=== PATIENT | female | born 1950 | race Asian ===

== ENCOUNTER 2016-10-16 06:41 | Day surgery (SDC) | payer MEDICARE, OTHER ==
[~2016-10-16] VITALS: Ht 149.9 cm; Wt 66.4 kg
[~2016-10-16 06:41] MED LIST: SIMV-260 PO
[2016-10-16] MEDS ORDERED: BOTULINUM TOXIN TYPE A 100 UNITS/VIAL ID ONE (06:45)
[2016-10-16] MEDS ORDERED: SODIUM CHLORIDE 0.9% 1,000 ML IV ONE ×2 (07:00)
== END 2016-10-16 09:35 | disposition home or self-care (01) ==
LOC: SURGERY 06:41
PROVIDERS: ATTEND Specialist
DX: K29.70 Gastritis, unspecified, without bleeding (principal); K21.9 Gastro-esophageal reflux disease without esophagitis; K22.4 Dyskinesia of esophagus; K63.5 Polyp of colon; E78.5 Hyperlipidemia, unspecified; K64.8 Other hemorrhoids; A04.8 Other specified bacterial intestinal infections; Z88.2 Allergy status to sulfonamides; Z88.8 Allergy status to other drugs, medicaments and biological substances
CPT/HCPCS: 43236; 43239; 88305; 88309; C1769; J0585; J7030

== ENCOUNTER → 2018-01-01 | Outpatient (CLI) | payer MEDICARE, OTHER ==
[~2018-01-01] VITALS: Ht 162.6 cm; Wt 69.5 kg
[~2018-01-01] MED LIST changes: +ALPR0.5T8 PO; +EZET10 PO; +GABA-531 PO
[2018-01-01 11:31] VITALS: BP 100/53
== END | disposition home or self-care (01) ==
LOC: SRCNTR 11:19
PROVIDERS: ATTEND Internal Medicine Cardiovascular Disease
DX: F41.9 Anxiety disorder, unspecified (principal); E78.5 Hyperlipidemia, unspecified
CPT/HCPCS: G0463

== ENCOUNTER → 2018-01-03 | Outpatient (CLI) | payer MEDICARE, OTHER ==
[2018-01-03 10:52] LABS: EOSINOPHILS % (AUTO) 6.5 % (1.0-6.0); HEMATOCRIT 43.1 % (36-46); HEMOGLOBIN 14.6 g/dL (12.0-16.0); LYMPHOCYTES # (AUTO) 2.3 K/uL (1.0-4.8); LYMPHOCYTES % (AUTO) 37.6 % (22.0-44.0); MEAN CORPUSCULAR VOLUME 88 fL (80-100); MONOCYTES # (AUTO) 0.5 K/uL (0.1-1.0); MONOCYTES % (AUTO) 8.5 % (2.0-9.0); NEUTROPHILS # (AUTO) 2.8 K/uL (1.8-7.7); NEUTROPHILS % (AUTO) 46.4 % (40.0-70.0); PLATELET COUNT (AUTO) 320 K/uL (150-450); RED BLOOD CELL COUNT(AUTO) 4.88 MIL/uL (4.00-5.20); RED CELL DISTRIBUTION WIDTH 13.8 % (11.5-14.5)
[2018-01-03 10:53] LABS: APPEARANCE,URINE CLEAR (CLEAR); BILIRUBIN,URINE NEGATIVE (NEGATIVE); GLUCOSE, URINE (UA) NEGATIVE (NEGATIVE); KETONES,URINE NEGATIVE (NEGATIVE); LEUKOCYTE ESTERASE ,URINE NEGATIVE (NEGATIVE); NITRATE,URINE NEGATIVE (NEGATIVE); OCCULT BLOOD,URINE NEGATIVE (NEGATIVE); PH,URINE 6.5 (5.0-8.0); PROTEIN,URINE NEGATIVE (NEGATIVE); UROBILINOGEN,URINE 0.2 mg/dL (<=1.0)
[2018-01-03 11:18] LABS: ALANINE AMINOTRANSFERASE 27 U/L (12-78); ALBUMIN 3.3 g/dL (3.4-5.0); ALKALINE PHOSPHATASE 56 U/L (46-116); ANION GAP 6 mmol/L (8-16); ASPARTATE AMINOTRANSFERASE 35 U/L (15-37); BILIRUBIN,TOTAL 0.4 mg/dL (0.1-1.0); CALCIUM, TOTAL 8.7 mg/dL (8.8-10.5); CARBON DIOXIDE 28 mmol/L (22-29); CHLORIDE 105 mmol/L (98-107); CHOL/HDL RATIO 3.8 (3.9-5.7); CHOLESTEROL 171 mg/dL (131-200); CREATININE 0.88 mg/dL (0.60-1.30); GLOMERULAR FILTR. RATE CALC > 60 mL/min (>60); GLUCOSE,RANDOM 104 mg/dL (70-110); HDL CHOLESTEROL 45 mg/dL (40-60); LDL CHOL (CALC.) 97 mg/dL (0-130); POTASSIUM 4.5 mmol/L (3.5-5.1); SODIUM SERUM 139 mmol/L (136-145); THYROID STIMULATING HORMONE 3.25 uIU/mL (0.36-3.74); TRIGLYCERIDES 146 mg/dL (15-150); UREA NITROGEN, BLOOD 14 mg/dL (7-18)
[2018-01-03 12:48] LABS: BACTERIA,URINE Rare /HPF (None Seen); RBC,URINE None Seen /HPF (0-2); SQUAMOUS EPITHELIAL CELL,UR Rare /LPF (None Seen); WBC,URINE 0-2 /HPF (0-5)
== END | disposition home or self-care (01) ==
LOC: LABPV 08:21
PROVIDERS: ATTEND Internal Medicine Cardiovascular Disease
DX: E78.5 Hyperlipidemia, unspecified (principal); Z79.899 Other long term (current) drug therapy; Z88.5 Allergy status to narcotic agent; Z88.2 Allergy status to sulfonamides
CPT/HCPCS: 82271; 83036; 84443

== ENCOUNTER → 2018-04-03 | Outpatient (CLI) | payer MEDICARE, OTHER ==
[~2018-04-03] VITALS: Ht 149.9 cm; Wt 71.0 kg
[~2018-04-03] MED LIST changes: +ALEN70TA10 PO
[2018-04-03 11:42] VITALS: BP 127/74
== END | disposition home or self-care (01) ==
LOC: SRCNTR 11:17
PROVIDERS: ATTEND Internal Medicine Cardiovascular Disease
DX: Z23 Encounter for immunization (principal); E78.5 Hyperlipidemia, unspecified; K21.9 Gastro-esophageal reflux disease without esophagitis; F41.9 Anxiety disorder, unspecified; F41.8 Other specified anxiety disorders; K44.9 Diaphragmatic hernia without obstruction or gangrene; G89.4 Chronic pain syndrome; Z79.899 Other long term (current) drug therapy; Z86.010 Personal history of colon polyps
CPT/HCPCS: 90471; 90686; G0463

== ENCOUNTER → 2018-07-10 | Outpatient (CLI) | payer MEDICARE, OTHER ==
[~2018-07-10] VITALS: Ht 157.5 cm; Wt 71.0 kg
[2018-07-10 14:28] VITALS: BP 107/59
== END | disposition home or self-care (01) ==
LOC: SRCNTR 14:04
PROVIDERS: ATTEND Internal Medicine Cardiovascular Disease
DX: R94.31 Abnormal electrocardiogram [ECG] [EKG] (principal); K20.9 Esophagitis, unspecified
CPT/HCPCS: 93005; G0463

== ENCOUNTER → 2018-07-21 | Outpatient (CLI) | payer MEDICARE, OTHER ==
[~2018-07-21] VITALS: Ht 160 cm; Wt 70.0 kg
[2018-07-21 11:45] VITALS: BP 105/42
== END | disposition home or self-care (01) ==
LOC: SRCNTR 09:35
PROVIDERS: ATTEND Hospitalist
DX: M25.562 Pain in left knee (principal); M25.561 Pain in right knee; M25.531 Pain in right wrist; E78.5 Hyperlipidemia, unspecified; K21.9 Gastro-esophageal reflux disease without esophagitis; F41.1 Generalized anxiety disorder; M81.0 Age-related osteoporosis without current pathological fracture; G62.9 Polyneuropathy, unspecified; H53.8 Other visual disturbances
CPT/HCPCS: G0463

== ENCOUNTER → 2018-09-16 | Outpatient (CLI) | payer MEDICARE, OTHER ==
[~2018-09-16] VITALS: Ht 160 cm; Wt 71.0 kg
[2018-09-16 14:34] VITALS: BP 97/58
== END | disposition home or self-care (01) ==
LOC: SRCNTR 14:32
PROVIDERS: ATTEND Internal Medicine Cardiovascular Disease
DX: M17.0 Bilateral primary osteoarthritis of knee (principal); K21.0 Gastro-esophageal reflux disease with esophagitis; E78.5 Hyperlipidemia, unspecified; R14.0 Abdominal distension (gaseous); Z68.27 Body mass index [BMI] 27.0-27.9, adult
CPT/HCPCS: G0463

== ENCOUNTER → 2018-12-24 | Outpatient (CLI) | payer MEDICARE, OTHER ==
[~2018-12-24] MED LIST changes: +IMIP25TA5 PO; +OMEP20 PO
== END | disposition home or self-care (01) ==
LOC: RADPV 13:28
PROVIDERS: ATTEND Internal Medicine Cardiovascular Disease
DX: M17.0 Bilateral primary osteoarthritis of knee (principal)

== ENCOUNTER → 2019-05-18 | Outpatient (CLI) | payer MEDICARE, OTHER ==
[~2019-05-18] VITALS: Ht 152.4 cm; Wt 73.0 kg
[~2019-05-18] MED LIST changes: -EZET10 PO; +EZET10TA13 PO; -IMIP25TA5 PO
[2019-05-18 11:00] VITALS: BP 123/70
== END | disposition home or self-care (01) ==
LOC: SRCNTR 10:57
PROVIDERS: ATTEND Internal Medicine Cardiovascular Disease
DX: I10 Essential (primary) hypertension (principal); E78.5 Hyperlipidemia, unspecified; K20.9 Esophagitis, unspecified
CPT/HCPCS: 93005; G0463; 93288

== ENCOUNTER → 2019-07-20 | Outpatient (CLI) | payer MEDICARE, OTHER ==
[~2019-07-20] VITALS: Ht 152.4 cm; Wt 73.0 kg
[2019-07-20 10:45] VITALS: BP 124/68
== END | disposition home or self-care (01) ==
LOC: SRCNTR 10:44
PROVIDERS: ATTEND Internal Medicine Cardiovascular Disease
DX: I10 Essential (primary) hypertension (principal); K21.0 Gastro-esophageal reflux disease with esophagitis; E78.5 Hyperlipidemia, unspecified; F41.9 Anxiety disorder, unspecified
CPT/HCPCS: G0463

== ENCOUNTER → 2019-07-24 | Outpatient (CLI) | payer MEDICARE, OTHER ==
[2019-07-24 12:39] LABS: BASOPHILS % (AUTO) 1.3 % (0.0-2.0); EOSINOPHILS % (AUTO) 5.5 % (1.0-6.0); HEMATOCRIT 44.6 % (36-46); HEMOGLOBIN 14.4 g/dL (12.0-16.0); LYMPHOCYTES # (AUTO) 1.5 K/uL (1.0-4.8); LYMPHOCYTES % (AUTO) 27.7 % (22.0-44.0); MEAN CORPUSCULAR HGB CONC 32.2 G/dL (31.0-37.0); MEAN CORPUSCULAR VOLUME 90 fL (80-100); MONOCYTES # (AUTO) 0.4 K/uL (0.1-1.0); MONOCYTES % (AUTO) 7.5 % (2.0-9.0); NEUTROPHILS # (AUTO) 3.1 K/uL (1.8-7.7); PLATELET COUNT (AUTO) 364 K/uL (150-450); RED BLOOD CELL COUNT(AUTO) 4.95 MIL/uL (4.00-5.20); RED CELL DISTRIBUTION WIDTH 14.5 % (11.5-14.5)
[2019-07-24 12:56] LABS: ALBUMIN 3.6 g/dL (3.4-5.0); BILIRUBIN,TOTAL 0.4 mg/dL (0.1-1.0); CHOL/HDL RATIO 4.5 (3.9-5.7); CREATININE 0.93 mg/dL (0.60-1.30); POTASSIUM 4.4 mmol/L (3.5-5.1); TOTAL PROTEIN, SERUM 7.4 g/dL (6.4-8.2)
[2019-07-24 13:59] LABS: HEMOGLOBIN A1C 6.4 % (3.8-5.6)
== END | disposition home or self-care (01) ==
LOC: LABPV 09:50
PROVIDERS: ATTEND Internal Medicine Cardiovascular Disease
DX: I10 Essential (primary) hypertension (principal); E78.5 Hyperlipidemia, unspecified; Z79.899 Other long term (current) drug therapy
CPT/HCPCS: 83036

== ENCOUNTER → 2019-07-30 | Outpatient (CLI) | payer MEDICARE, OTHER ==
[~2019-07-30] VITALS: Ht 153 cm; Wt 74.0 kg
[2019-07-30 12:00] VITALS: BP 121/68
== END | disposition home or self-care (01) ==
LOC: SRCNTR 11:56
PROVIDERS: ATTEND Hospitalist
DX: E78.5 Hyperlipidemia, unspecified (principal); E11.9 Type 2 diabetes mellitus without complications; F41.1 Generalized anxiety disorder; K21.9 Gastro-esophageal reflux disease without esophagitis; R14.2 Eructation; M25.562 Pain in left knee; M25.561 Pain in right knee; M81.0 Age-related osteoporosis without current pathological fracture; G62.9 Polyneuropathy, unspecified
CPT/HCPCS: G0463

== ENCOUNTER → 2019-12-09 | Outpatient (CLI) | payer MEDICARE, OTHER ==
[~2019-12-09] MED LIST changes: -ALEN70TA10 PO; +ALEN70TA65 PO; +GABA-1181 PO; -GABA-531 PO
== END | disposition home or self-care (01) ==
LOC: SRCNTR 10:54
PROVIDERS: ATTEND Internal Medicine Cardiovascular Disease
DX: I10 Essential (primary) hypertension (principal); K58.9 Irritable bowel syndrome, unspecified; E78.5 Hyperlipidemia, unspecified; K21.9 Gastro-esophageal reflux disease without esophagitis; F41.9 Anxiety disorder, unspecified
CPT/HCPCS: Q3014

== ENCOUNTER → 2019-12-31 | Outpatient (CLI) | payer MEDICARE, OTHER | END | disposition home or self-care (01) | LOC: SRCNTR 15:28 | PROVIDERS: ATTEND Hospitalist | DX: I10 Essential (primary) hypertension (principal); E11.9 Type 2 diabetes mellitus without complications; E78.5 Hyperlipidemia, unspecified; K21.9 Gastro-esophageal reflux disease without esophagitis; F41.9 Anxiety disorder, unspecified; Z79.899 Other long term (current) drug therapy; Z88.8 Allergy status to other drugs, medicaments and biological substances | CPT/HCPCS: Q3014 ==

== ENCOUNTER → 2020-02-08 | Outpatient (CLI) | payer MEDICARE, OTHER ==
[~2020-02-08] VITALS: Ht 152.4 cm; Wt 73.6 kg
[2020-02-08 10:46] VITALS: BP 121/65
== END | disposition home or self-care (01) ==
LOC: SRCNTR 10:32
PROVIDERS: ATTEND Internal Medicine Cardiovascular Disease
DX: I10 Essential (primary) hypertension (principal); E78.5 Hyperlipidemia, unspecified; K21.9 Gastro-esophageal reflux disease without esophagitis; K58.9 Irritable bowel syndrome, unspecified; F41.9 Anxiety disorder, unspecified; Z79.899 Other long term (current) drug therapy; Z88.8 Allergy status to other drugs, medicaments and biological substances
CPT/HCPCS: G0463; Z7500

== ENCOUNTER → 2020-03-04 | Outpatient (CLI) | payer MEDICARE, OTHER ==
[~2020-03-04] MED LIST changes: +INFLUENZA VIRUS VACCINE QVS 2020-21 (6MO+)/PF 60 MCG/0.5 ML SYRINGE IM ONE
[2020-03-04 15:48] VITALS: BP 110/60
== END | disposition home or self-care (01) ==
LOC: SRCNTR 14:28
PROVIDERS: ATTEND Internal Medicine Cardiovascular Disease
DX: Z23 Encounter for immunization (principal)
CPT/HCPCS: 90471; 90686; G0463

== ENCOUNTER → 2020-04-08 | Outpatient (CLI) | payer MEDICARE, OTHER ==
[~2020-04-08] VITALS: Ht 152.4 cm; Wt 73.5 kg
[~2020-04-08] MED LIST changes: -INFLUENZA VIRUS VACCINE QVS 2020-21 (6MO+)/PF 60 MCG/0.5 ML SYRINGE IM ONE
[2020-04-08 11:01] VITALS: BP 120/67
== END | disposition home or self-care (01) ==
LOC: SRCNTR 10:31
PROVIDERS: ATTEND Internal Medicine Cardiovascular Disease
DX: I10 Essential (primary) hypertension (principal); E78.5 Hyperlipidemia, unspecified; K21.9 Gastro-esophageal reflux disease without esophagitis; K58.9 Irritable bowel syndrome, unspecified; F41.9 Anxiety disorder, unspecified; Z88.8 Allergy status to other drugs, medicaments and biological substances; Z79.899 Other long term (current) drug therapy
CPT/HCPCS: G0463

== ENCOUNTER → 2020-04-14 | Outpatient (CLI) | payer MEDICARE, OTHER ==
[~2020-04-14] VITALS: Ht 152.4 cm; Wt 74.5 kg
[2020-04-14 11:01] VITALS: BP 135/69
== END | disposition home or self-care (01) ==
LOC: SRCNTR 10:21
PROVIDERS: ATTEND Hospitalist
DX: R14.2 Eructation (principal)
CPT/HCPCS: G0463

== ENCOUNTER → 2020-04-18 | Outpatient (CLI) | payer MEDICARE, OTHER ==
[2020-04-18 13:38] LABS: BASOPHILS % (AUTO) 1.1 % (0.0-2.0); EOSINOPHILS % (AUTO) 3.4 % (1.0-6.0); HEMATOCRIT 43.8 % (36-46); HEMOGLOBIN 14.5 g/dL (12.0-16.0); LYMPHOCYTES # (AUTO) 2.2 K/uL (1.0-4.8); LYMPHOCYTES % (AUTO) 34.6 % (22.0-44.0); MEAN CORPUSCULAR HEMOGLOBIN 29.8 pg (26.0-34.0); MEAN CORPUSCULAR HGB CONC 33.1 G/dL (31.0-37.0); MEAN CORPUSCULAR VOLUME 90 fL (80-100); MONOCYTES # (AUTO) 0.5 K/uL (0.1-1.0); MONOCYTES % (AUTO) 7.5 % (2.0-9.0); NEUTROPHILS # (AUTO) 3.5 K/uL (1.8-7.7); NEUTROPHILS % (AUTO) 53.4 % (40.0-70.0); PLATELET COUNT (AUTO) 343 K/uL (150-450); RED BLOOD CELL COUNT(AUTO) 4.87 MIL/uL (4.00-5.20); RED CELL DISTRIBUTION WIDTH 14.2 % (11.5-14.5)
[2020-04-18 13:56] LABS: HEMOGLOBIN A1C 6.5 % (3.8-5.6)
[2020-04-18 14:00] LABS: ALBUMIN 3.5 g/dL (3.4-5.0); BILIRUBIN,TOTAL 0.4 mg/dL (0.1-1.0); CALCIUM, TOTAL 9.5 mg/dL (8.8-10.5); CHOL/HDL RATIO 3.6 (3.9-5.7); CREATININE 1.01 mg/dL (0.60-1.30); POTASSIUM 4.9 mmol/L (3.5-5.1); THYROID STIMULATING HORMONE 2.2 uIU/mL (0.36-3.74); TOTAL PROTEIN, SERUM 7.8 g/dL (6.4-8.2)
== END | disposition home or self-care (01) ==
LOC: MSR 09:59
PROVIDERS: ATTEND Hospitalist
DX: M85.88 Other specified disorders of bone density and structure, other site (principal); E11.9 Type 2 diabetes mellitus without complications
CPT/HCPCS: 77080; 82271; 83036; 84443

== ENCOUNTER → 2020-06-10 | Outpatient (CLI) | payer MEDICARE, OTHER ==
[~2020-06-10] VITALS: Ht 152.4 cm; Wt 73.3 kg
[2020-06-10 11:21] VITALS: BP 108/66
== END | disposition home or self-care (01) ==
LOC: SRCNTR 10:53
PROVIDERS: ATTEND Internal Medicine Cardiovascular Disease
DX: I10 Essential (primary) hypertension (principal); K58.9 Irritable bowel syndrome, unspecified; E11.9 Type 2 diabetes mellitus without complications; E78.5 Hyperlipidemia, unspecified; K21.9 Gastro-esophageal reflux disease without esophagitis; Z88.5 Allergy status to narcotic agent; Z88.2 Allergy status to sulfonamides; Z79.899 Other long term (current) drug therapy
CPT/HCPCS: G0463; Z7500

== ENCOUNTER → 2020-06-23 | Outpatient (CLI) | payer MEDICARE, OTHER ==
[~2020-06-23] VITALS: Ht 154.9 cm; Wt 73.0 kg
[2020-06-23 15:49] VITALS: BP 121/65
== END | disposition home or self-care (01) ==
LOC: SRCNTR 10:21
PROVIDERS: ATTEND Hospitalist
DX: I10 Essential (primary) hypertension (principal); E78.5 Hyperlipidemia, unspecified; K21.9 Gastro-esophageal reflux disease without esophagitis; K58.9 Irritable bowel syndrome, unspecified; F41.9 Anxiety disorder, unspecified; E11.9 Type 2 diabetes mellitus without complications
CPT/HCPCS: G0463

== ENCOUNTER → 2020-08-12 | Outpatient (CLI) | payer MEDICARE, OTHER ==
[~2020-08-12] VITALS: Ht 154.9 cm; Wt 70.0 kg
[~2020-08-12] MED LIST changes: +METF-960 PO
[2020-08-12 11:13] VITALS: BP 120/66
== END | disposition home or self-care (01) ==
LOC: SRCNTR 10:35
PROVIDERS: ATTEND Internal Medicine Cardiovascular Disease
DX: E11.9 Type 2 diabetes mellitus without complications (principal); I10 Essential (primary) hypertension; E78.5 Hyperlipidemia, unspecified; K21.9 Gastro-esophageal reflux disease without esophagitis; R42 Dizziness and giddiness; K58.9 Irritable bowel syndrome, unspecified
CPT/HCPCS: G0463; Z7500

== ENCOUNTER → 2020-09-22 | Outpatient (CLI) | payer MEDICARE, OTHER ==
[~2020-09-22] VITALS: Ht 152.4 cm; Wt 69.8 kg
[~2020-09-22] MED LIST changes: -EZET10TA13 PO; +EZET10TA57 PO
[2020-09-22 10:48] VITALS: BP 128/70
== END | disposition home or self-care (01) ==
LOC: SRCNTR 10:23
PROVIDERS: ATTEND Hospitalist
DX: I10 Essential (primary) hypertension (principal); E78.5 Hyperlipidemia, unspecified; K21.9 Gastro-esophageal reflux disease without esophagitis; F41.9 Anxiety disorder, unspecified; E11.9 Type 2 diabetes mellitus without complications; M79.7 Fibromyalgia; Z79.899 Other long term (current) drug therapy; Z88.8 Allergy status to other drugs, medicaments and biological substances; Z79.84 Long term (current) use of oral hypoglycemic drugs
CPT/HCPCS: G0463; Z7500

== ENCOUNTER → 2020-09-30 | Outpatient (CLI) | payer MEDICARE, OTHER ==
[2020-09-30 10:11] LABS: BASOPHILS % (AUTO) 0.9 % (0.0-2.0); HEMATOCRIT 43.6 % (36-46); HEMOGLOBIN 14.3 g/dL (12.0-16.0); LYMPHOCYTES # (AUTO) 1.7 K/uL (1.0-4.8); LYMPHOCYTES % (AUTO) 27.6 % (22.0-44.0); MEAN CORPUSCULAR HEMOGLOBIN 29.4 pg (26.0-34.0); MEAN CORPUSCULAR HGB CONC 32.8 G/dL (31.0-37.0); MEAN CORPUSCULAR VOLUME 90 fL (80-100); MONOCYTES # (AUTO) 0.5 K/uL (0.1-1.0); MONOCYTES % (AUTO) 7.8 % (2.0-9.0); NEUTROPHILS # (AUTO) 3.6 K/uL (1.8-7.7); NEUTROPHILS % (AUTO) 59.7 % (40.0-70.0); PLATELET COUNT (AUTO) 310 K/uL (150-450); RED BLOOD CELL COUNT(AUTO) 4.86 MIL/uL (4.00-5.20); RED CELL DISTRIBUTION WIDTH 13.8 % (11.5-14.5)
[2020-09-30 10:42] LABS: HEMOGLOBIN A1C 6.1 % (3.8-5.6)
[2020-09-30 10:47] LABS: ALBUMIN 3.6 g/dL (3.4-5.0); BILIRUBIN,TOTAL 0.4 mg/dL (0.1-1.0); CALCIUM, TOTAL 8.6 mg/dL (8.8-10.5); CHOL/HDL RATIO 3.8 (3.9-5.7); CREATININE 0.97 mg/dL (0.60-1.30); PHOSPHORUS 2.7 mg/dL (2.5-4.9); POTASSIUM 4.7 mmol/L (3.5-5.1); THYROID STIMULATING HORMONE 2.6 uIU/mL (0.36-3.74); TOTAL PROTEIN, SERUM 7.2 g/dL (6.4-8.2)
[2020-09-30 11:26] LABS: ERYTHROCYTE SEDIMENTATION RATE 20 MM/HR (0-20)
== END | disposition home or self-care (01) ==
LOC: LABPV 08:00
PROVIDERS: ATTEND Hospitalist
DX: L29.9 Pruritus, unspecified (principal); L98.9 Disorder of the skin and subcutaneous tissue, unspecified; I10 Essential (primary) hypertension; E11.9 Type 2 diabetes mellitus without complications; Z79.899 Other long term (current) drug therapy
CPT/HCPCS: 80053; 80061; 80069; 82306; 82550; 83036; 84443; 85025; 85651; 86038

== ENCOUNTER → 2020-10-14 | Outpatient (CLI) | payer MEDICARE, OTHER ==
[~2020-10-14] VITALS: Ht 152.4 cm; Wt 69.5 kg
[2020-10-14 11:03] VITALS: BP 116/59
== END | disposition home or self-care (01) ==
LOC: SRCNTR 10:38
PROVIDERS: ATTEND Internal Medicine Cardiovascular Disease
DX: E11.9 Type 2 diabetes mellitus without complications (principal); I10 Essential (primary) hypertension; E78.5 Hyperlipidemia, unspecified; K21.9 Gastro-esophageal reflux disease without esophagitis; K58.9 Irritable bowel syndrome, unspecified; F41.8 Other specified anxiety disorders
CPT/HCPCS: G0463

== ENCOUNTER → 2020-12-16 | Outpatient (CLI) | payer MEDICARE, OTHER ==
[~2020-12-16] VITALS: Ht 154.9 cm; Wt 69.0 kg
[2020-12-16 10:43] VITALS: BP 113/58
== END | disposition home or self-care (01) ==
LOC: SRCNTR 10:17
PROVIDERS: ATTEND Internal Medicine Cardiovascular Disease
DX: E11.9 Type 2 diabetes mellitus without complications (principal); E78.5 Hyperlipidemia, unspecified; K21.9 Gastro-esophageal reflux disease without esophagitis; K58.9 Irritable bowel syndrome, unspecified; F41.8 Other specified anxiety disorders
CPT/HCPCS: G0463

== ENCOUNTER → 2020-12-29 | Outpatient (CLI) | payer MEDICARE, OTHER ==
[~2020-12-29] VITALS: Ht 152.4 cm; Wt 69.4 kg
[2020-12-29 12:57] VITALS: BP 115/65
== END | disposition home or self-care (01) ==
LOC: SRCNTR 11:36
PROVIDERS: ATTEND Hospitalist
DX: I10 Essential (primary) hypertension (principal); E78.5 Hyperlipidemia, unspecified; K21.9 Gastro-esophageal reflux disease without esophagitis; E11.9 Type 2 diabetes mellitus without complications; K58.9 Irritable bowel syndrome, unspecified; F41.9 Anxiety disorder, unspecified
CPT/HCPCS: G0463; Z7500

== ENCOUNTER 2021-01-25 09:03 | Inpatient (IN) | payer MEDICARE, OTHER ==
[~2021-01-25] VITALS: Ht 152.4 cm; Wt 69.5 kg
[2021-01-25] MEDS ORDERED: IOHEXOL 350 MG/ML 75 ML VIAL ONE (09:22)
[2021-01-25] MEDS ORDERED: SODIUM CHLORIDE 0.9% 100 ML ONE (09:22)
[2021-01-25 09:47] LABS: BASOPHILS % (AUTO) 0.8 % (0.0-2.0); EOSINOPHILS % (AUTO) 1.1 % (1.0-6.0); HEMATOCRIT 47.8 % (36-46); HEMOGLOBIN 15.8 g/dL (12.0-16.0); LYMPHOCYTES # (AUTO) 1.2 K/uL (1.0-4.8); LYMPHOCYTES % (AUTO) 15.7 % (22.0-44.0); MEAN CORPUSCULAR HEMOGLOBIN 29.5 pg (26.0-34.0); MEAN CORPUSCULAR HGB CONC 33.2 G/dL (31.0-37.0); MEAN CORPUSCULAR VOLUME 89 fL (80-100); MONOCYTES # (AUTO) 0.8 K/uL (0.1-1.0); MONOCYTES % (AUTO) 9.8 % (2.0-9.0); NEUTROPHILS # (AUTO) 5.6 K/uL (1.8-7.7); NEUTROPHILS % (AUTO) 72.6 % (40.0-70.0); PLATELET COUNT (AUTO) 312 K/uL (150-450); RED BLOOD CELL COUNT(AUTO) 5.37 MIL/uL (4.00-5.20); RED CELL DISTRIBUTION WIDTH 14.6 % (11.5-14.5)
[2021-01-25 10:00] LABS: PROTHROMBIN TIME 10.3 SEC (9.4-11.6)
[2021-01-25 10:29] LABS: ANION GAP 10 mmol/L (8-16); CARBON DIOXIDE 25 mmol/L (22-29); CHLORIDE 100 mmol/L (98-107); CREATININE 0.91 mg/dL (0.60-1.30); GLOMERULAR FILTR. RATE CALC > 60 mL/min (>60); GLUCOSE,RANDOM 109 mg/dL (70-110); POTASSIUM 4.2 mmol/L (3.5-5.1); SODIUM SERUM 135 mmol/L (136-145); UREA NITROGEN, BLOOD 12 mg/dL (7-18)
[2021-01-25 10:30] LABS: CALCIUM, TOTAL 8.7 mg/dL (8.8-10.5)
[2021-01-25] MEDS ORDERED: MINERAL OIL/PETROLATUM,WHITE PF 3.5 GM OPHTHALMIC OINTMENT OS ONE (10:30)
[2021-01-25] MEDS ORDERED: ACYCLOVIR 200 MG CAPSULE PO ONE (10:30)
[2021-01-25] MEDS ORDERED: PredniSONE 20 MG TABLET PO ONE (10:30)
[2021-01-25] MEDS ORDERED: ASPIRIN 325 MG DR TABLET PO ONE (10:30)
[2021-01-25 10:38] LABS: ALANINE AMINOTRANSFERASE 31 U/L (12-78); ALKALINE PHOSPHATASE 70 U/L (46-116); ASPARTATE AMINOTRANSFERASE 35 U/L (15-37); BILIRUBIN,TOTAL 0.5 mg/dL (0.1-1.0); TOTAL PROTEIN, SERUM 8.1 g/dL (6.4-8.2)
[2021-01-25 10:39] LABS: ALBUMIN 3.5 g/dL (3.4-5.0)
[2021-01-25 12:56] LABS: APPEARANCE,URINE CLEAR (CLEAR); BILIRUBIN,URINE NEGATIVE (NEGATIVE); GLUCOSE, URINE (UA) NEGATIVE (NEGATIVE); KETONES,URINE NEGATIVE (NEGATIVE); LEUKOCYTE ESTERASE ,URINE NEGATIVE (NEGATIVE); NITRATE,URINE NEGATIVE (NEGATIVE); OCCULT BLOOD,URINE NEGATIVE (NEGATIVE); PROTEIN,URINE NEGATIVE (NEGATIVE); UROBILINOGEN,URINE 0.2 mg/dL (<=1.0)
[2021-01-25 13:01] LABS: AMPHET/METH SCREEN,URINE NEGATIVE (NEGATIVE); BARBITURATE SCREEN, URINE NEGATIVE (NEGATIVE); BENZODIAZEPINES SCREEN,URINE POSITIVE (NEGATIVE); CANNABINOID SCREEN,URINE NEGATIVE (NEGATIVE); COCAINE SCREEN,URINE NEGATIVE (NEGATIVE); METHADONE SCREEN, URINE NEGATIVE (NEGATIVE); OPIATE SCREEN,URINE NEGATIVE (NEGATIVE); PHENCYCLIDINE SCREEN,URINE NEGATIVE (NEGATIVE)
[2021-01-25 13:32] LABS: BACTERIA,URINE None Seen /HPF (None Seen); RBC,URINE None Seen /HPF (0-2); WBC,URINE None Seen /HPF (0-5)
[2021-01-25] MEDS ORDERED: HYDROCODONE/ACETAMINOPHEN 5-325 MG TABLET PO PRN (15:15)
[2021-01-25] MEDS ORDERED: ZOLPIDEM TARTRATE 5 MG TABLET PO PRN (15:15)
[2021-01-25] MEDS ORDERED: ONDANSETRON HCL 4 MG/2 ML VIAL IVP PRN (15:15)
[2021-01-25] MEDS ORDERED: MAGNESIUM HYDROXIDE SUSPENSION 30 ML UDCUP PO PRN (15:15)
[2021-01-25] MEDS ORDERED: BISACODYL 10 MG RECTAL RECTAL SUPPOSITORY PR PRN (15:15)
[2021-01-25] MEDS: HEPARIN SODIUM,PORCINE 5,000 UNITS/ML VIAL SQ SCH ×2 (15:23→23:40)
[2021-01-25 17:06] VITALS: BP 137/67
[2021-01-25] MEDS: MetFORMIN HCL 500 MG TABLET PO SCH (17:41)
[2021-01-25] MEDS: ACETAMINOPHEN 325 MG TABLET PO PRN ×2 (17:41→23:40)
[2021-01-25 19:50] VITALS: BP 139/72
[2021-01-25] MEDS: DOCUSATE SODIUM 100 MG CAPSULE PO SCH (20:16)
[2021-01-25] MEDS ORDERED: MELATONIN 3 MG TABLET PO PRN (22:30)
[2021-01-25 23:31] VITALS: BP 131/71
[2021-01-26 04:14] VITALS: BP 118/70
[2021-01-26 07:24] VITALS: BP 140/82
[2021-01-26] MEDS: DOCUSATE SODIUM 100 MG CAPSULE PO SCH ×2 (09:01→20:09)
[2021-01-26] MEDS: HEPARIN SODIUM,PORCINE 5,000 UNITS/ML VIAL SQ SCH ×2 (09:01→16:31)
[2021-01-26] MEDS: MetFORMIN HCL 500 MG TABLET PO SCH (09:01)
[2021-01-26] MEDS: PANTOPRAZOLE SODIUM 40 MG DR TABLET PO SCH (09:01)
[2021-01-26] MEDS: EZETIMIBE 10 MG TABLET PO SCH (09:01)
[2021-01-26] MEDS: SIMVASTATIN 20 MG TABLET PO SCH (09:01)
[2021-01-26 10:58] VITALS: BP 129/58
[2021-01-26 11:37] LABS: BASOPHILS % (AUTO) 0.7 % (0.0-2.0); EOSINOPHILS % (AUTO) 0 % (1.0-6.0); HEMATOCRIT 48.6 % (36-46); HEMOGLOBIN 15.8 g/dL (12.0-16.0); LYMPHOCYTES # (AUTO) 0.9 K/uL (1.0-4.8); LYMPHOCYTES % (AUTO) 12.6 % (22.0-44.0); MEAN CORPUSCULAR HEMOGLOBIN 29.2 pg (26.0-34.0); MEAN CORPUSCULAR HGB CONC 32.4 G/dL (31.0-37.0); MEAN CORPUSCULAR VOLUME 90 fL (80-100); MONOCYTES # (AUTO) 0.7 K/uL (0.1-1.0); MONOCYTES % (AUTO) 9.1 % (2.0-9.0); NEUTROPHILS # (AUTO) 5.8 K/uL (1.8-7.7); NEUTROPHILS % (AUTO) 77.6 % (40.0-70.0); PLATELET COUNT (AUTO) 306 K/uL (150-450); RED CELL DISTRIBUTION WIDTH 14.3 % (11.5-14.5)
[2021-01-26] MEDS ORDERED: DEXTROSE 50%-WATER 25 GM/50 ML SYRINGE IVP PRN (11:45)
[2021-01-26 11:50] LABS: CREATININE 1.01 mg/dL (0.60-1.30); POTASSIUM 4.7 mmol/L (3.5-5.1)
[2021-01-26 11:55] LABS: ALBUMIN 3.4 g/dL (3.4-5.0); BILIRUBIN,TOTAL 0.3 mg/dL (0.1-1.0); TOTAL PROTEIN, SERUM 7.8 g/dL (6.4-8.2)
[2021-01-26] MEDS: MethylPREDNISolone SOD SUCC 125 MG/2 ML VIAL IVP ONE ×2 (15:15→16:31)
[2021-01-26 15:26] VITALS: BP 132/78
[2021-01-26] MEDS: ValACYclovir HCL 500 MG TABLET PO SCH ×2 (16:31→20:09)
[2021-01-26] MEDS ORDERED: PredniSONE 20 MG TABLET PO ONE (18:15)
[2021-01-26 19:36] VITALS: BP 125/61
[2021-01-26] MEDS ORDERED: ALPRAZolam 0.5 MG TABLET PO PRN (21:30)
[2021-01-26 22:28] LABS: GLUCOMETER DEV NAME(LOC) 5S.2B; GLUCOSE,POINT OF CARE 108 MG/DL (70-110)
[2021-01-26 23:33] VITALS: BP 123/66
[2021-01-27] MEDS: HEPARIN SODIUM,PORCINE 5,000 UNITS/ML VIAL SQ SCH ×2 (00:21→08:25)
[2021-01-27 04:30] VITALS: BP 119/61
[2021-01-27] MEDS: INSULIN LISPRO 100 UNITS/ML SQ PRN ×2 (05:59→11:44)
[2021-01-27 06:45] LABS: GLUCOMETER DEV NAME(LOC) 5S.1; GLUCOSE,POINT OF CARE 118 MG/DL (70-110)
[2021-01-27 06:45] LABS: GLUCOMETER DEV NAME(LOC) 5S.1; GLUCOSE,POINT OF CARE 160 MG/DL (70-110)
[2021-01-27 06:45] LABS: GLUCOMETER DEV NAME(LOC) 5S.1; GLUCOSE,POINT OF CARE 110 MG/DL (70-110)
[2021-01-27 07:21] VITALS: BP 124/66
[2021-01-27] MEDS: DOCUSATE SODIUM 100 MG CAPSULE PO SCH (08:26)
[2021-01-27] MEDS: SIMVASTATIN 20 MG TABLET PO SCH (08:26)
[2021-01-27] MEDS: PANTOPRAZOLE SODIUM 40 MG DR TABLET PO SCH (08:26)
[2021-01-27] MEDS: EZETIMIBE 10 MG TABLET PO SCH (08:27)
[2021-01-27] MEDS: ValACYclovir HCL 500 MG TABLET PO SCH (08:27)
[2021-01-27] MEDS: ACETAMINOPHEN 325 MG TABLET PO PRN (08:39)
[2021-01-27] MEDS ORDERED: ValACYclovir HCL 500 MG TABLET PO SCH (09:00)
[2021-01-27] MEDS ORDERED: PredniSONE 20 MG TABLET PO SCH (09:00)
[2021-01-27 11:08] VITALS: BP 122/62
[2021-01-27] MEDS ORDERED: VALA500T34 PO (13:59)
[2021-01-27] MEDS ORDERED: METH4TAB3 PO (13:59)
[2021-01-27 15:17] VITALS: BP 147/65
[2021-01-27 19:28] LABS: GLUCOMETER DEV NAME(LOC) 5S.1; GLUCOSE,POINT OF CARE 153 MG/DL (70-110)
== END 2021-01-27 16:10 | disposition home or self-care (01) | DRG 74 ==
LOC: EMS 09:09 → 5S 15:53
PROVIDERS: ADMIT Internal Medicine; ATTEND Internal Medicine
DX: G51.0 Bell's palsy (principal); E87.1 Hypo-osmolality and hyponatremia; E11.9 Type 2 diabetes mellitus without complications; E66.3 Overweight; E78.5 Hyperlipidemia, unspecified; K21.9 Gastro-esophageal reflux disease without esophagitis; M81.0 Age-related osteoporosis without current pathological fracture; Z79.83 Long term (current) use of bisphosphonates; Z79.84 Long term (current) use of oral hypoglycemic drugs; Z79.899 Other long term (current) drug therapy; Z68.29 Body mass index [BMI] 29.0-29.9, adult; Z88.5 Allergy status to narcotic agent; Z88.2 Allergy status to sulfonamides
CPT/HCPCS: 70496; 70551; 71045; 80053; 81001; 82947; 82962; 84484; 85025; 85610; 85730; 86850; 86900; 86901; 92507; 92610; 93005; 99291; J1644; J2930; J7050; Q9967; 36415-L1; 36415-TC; 70450; 70450-TC

== ENCOUNTER → 2021-02-01 | Outpatient (CLI) | payer MEDICARE, OTHER ==
[~2021-02-01] MED LIST changes: +GLIP5 PO; +METH4TAB3 PO; +TRAM50TA4 PO; +VALA500T34 PO
[2021-02-01 11:18] VITALS: BP 119/60
== END | disposition home or self-care (01) ==
LOC: SRCNTR 10:34
PROVIDERS: ATTEND Hospitalist
DX: I10 Essential (primary) hypertension (principal); E78.5 Hyperlipidemia, unspecified; K21.9 Gastro-esophageal reflux disease without esophagitis; E11.9 Type 2 diabetes mellitus without complications; K58.9 Irritable bowel syndrome, unspecified; F41.9 Anxiety disorder, unspecified; G51.0 Bell's palsy
CPT/HCPCS: G0463

== ENCOUNTER → 2021-02-09 | Outpatient (CLI) | payer MEDICARE, OTHER ==
[~2021-02-09] MED LIST changes: -METH4TAB3 PO; -VALA500T34 PO
[2021-02-09 15:05] VITALS: BP 106/49
== END | disposition home or self-care (01) ==
LOC: SRCNTR 11:55
PROVIDERS: ATTEND Hospitalist
DX: I10 Essential (primary) hypertension (principal); E78.5 Hyperlipidemia, unspecified; K21.9 Gastro-esophageal reflux disease without esophagitis; E11.9 Type 2 diabetes mellitus without complications; K58.8 Other irritable bowel syndrome; F41.9 Anxiety disorder, unspecified; G51.0 Bell's palsy
CPT/HCPCS: G0463

== ENCOUNTER → 2021-02-17 | Outpatient (CLI) | payer MEDICARE, OTHER ==
[~2021-02-17] VITALS: Ht 152.4 cm; Wt 63.9 kg
[2021-02-17 10:54] VITALS: BP 110/73
== END | disposition home or self-care (01) ==
LOC: SRCNTR 10:30
PROVIDERS: ATTEND Internal Medicine Cardiovascular Disease
DX: E11.9 Type 2 diabetes mellitus without complications (principal); E78.5 Hyperlipidemia, unspecified; K21.9 Gastro-esophageal reflux disease without esophagitis; K58.8 Other irritable bowel syndrome; F41.9 Anxiety disorder, unspecified; G51.0 Bell's palsy
CPT/HCPCS: G0463; Z7500

== ENCOUNTER → 2021-02-23 | Outpatient (CLI) | payer MEDICARE, OTHER ==
[~2021-02-23] VITALS: Ht 152.4 cm; Wt 64.5 kg
[~2021-02-23] MED LIST changes: -ALEN70TA65 PO; -GABA-1181 PO; +INFLUENZA VIRUS VACCINE QVS 2021-22 (6MO+)/PF 60 MCG/0.5 ML SYRINGE IM. ONE; -METF-960 PO; -OMEP20 PO
[2021-02-23 14:22] VITALS: BP 99/60
== END | disposition home or self-care (01) ==
LOC: SRCNTR 11:05
PROVIDERS: ATTEND Hospitalist
DX: Z23 Encounter for immunization (principal); F41.9 Anxiety disorder, unspecified; K21.9 Gastro-esophageal reflux disease without esophagitis; I10 Essential (primary) hypertension; E78.5 Hyperlipidemia, unspecified; E11.9 Type 2 diabetes mellitus without complications; M81.0 Age-related osteoporosis without current pathological fracture; K58.9 Irritable bowel syndrome, unspecified; G51.0 Bell's palsy; Z79.899 Other long term (current) drug therapy; Z79.84 Long term (current) use of oral hypoglycemic drugs
CPT/HCPCS: 90471; 90686; G0463

== ENCOUNTER → 2021-04-06 | Outpatient (CLI) | payer MEDICARE, OTHER ==
[~2021-04-06] VITALS: Ht 152.4 cm; Wt 65.6 kg
[~2021-04-06] MED LIST changes: +ALEN70TA65 PO; -INFLUENZA VIRUS VACCINE QVS 2021-22 (6MO+)/PF 60 MCG/0.5 ML SYRINGE IM. ONE; +OMEP20 PO
[2021-04-06 12:55] VITALS: BP 111/67
== END | disposition home or self-care (01) ==
LOC: SRCNTR 12:30
PROVIDERS: ATTEND Hospitalist
DX: I10 Essential (primary) hypertension (principal); E78.5 Hyperlipidemia, unspecified; K21.9 Gastro-esophageal reflux disease without esophagitis; E11.9 Type 2 diabetes mellitus without complications; F41.9 Anxiety disorder, unspecified; K58.9 Irritable bowel syndrome, unspecified; G51.0 Bell's palsy
CPT/HCPCS: G0463

== ENCOUNTER → 2021-04-17 | Outpatient (CLI) | payer MEDICARE, OTHER ==
[~2021-04-17] VITALS: Ht 152.4 cm; Wt 65.6 kg
[~2021-04-17] MED LIST changes: -OMEP20 PO
[2021-04-17 11:32] VITALS: BP 95/63
== END | disposition home or self-care (01) ==
LOC: SRCNTR 10:52
PROVIDERS: ATTEND Internal Medicine Cardiovascular Disease
DX: E11.9 Type 2 diabetes mellitus without complications (principal); E78.5 Hyperlipidemia, unspecified; K21.9 Gastro-esophageal reflux disease without esophagitis; K58.8 Other irritable bowel syndrome; G51.0 Bell's palsy; F41.9 Anxiety disorder, unspecified
CPT/HCPCS: G0463

== ENCOUNTER → 2021-06-19 | Outpatient (CLI) | payer MEDICARE, OTHER ==
[~2021-06-19] VITALS: Ht 152.4 cm; Wt 66.0 kg
[~2021-06-19] MED LIST changes: +OMEP20 PO; -TRAM50TA4 PO
[2021-06-19 11:06] VITALS: BP 112/66
== END | disposition home or self-care (01) ==
LOC: SRCNTR 10:31
PROVIDERS: ATTEND Internal Medicine Cardiovascular Disease
DX: E11.9 Type 2 diabetes mellitus without complications (principal); E78.5 Hyperlipidemia, unspecified; K21.9 Gastro-esophageal reflux disease without esophagitis; K58.9 Irritable bowel syndrome, unspecified; F41.9 Anxiety disorder, unspecified
CPT/HCPCS: G0463

== ENCOUNTER → 2021-06-21 | Outpatient (CLI) | payer MEDICARE, OTHER ==
[~2021-06-21] VITALS: Ht 152.4 cm; Wt 66.0 kg
[2021-06-21 10:54] VITALS: BP 115/70
== END | disposition home or self-care (01) ==
LOC: SRCNTR 10:09
PROVIDERS: ATTEND Hospitalist
DX: I10 Essential (primary) hypertension (principal); E78.5 Hyperlipidemia, unspecified; K21.9 Gastro-esophageal reflux disease without esophagitis; E11.9 Type 2 diabetes mellitus without complications; F41.9 Anxiety disorder, unspecified; G51.0 Bell's palsy; K58.9 Irritable bowel syndrome, unspecified
CPT/HCPCS: G0463

== ENCOUNTER → 2021-06-23 | Outpatient (CLI) | payer MEDICARE, OTHER ==
[2021-06-23 10:59] LABS: BASOPHILS % (AUTO) 0.8 % (0.0-2.0); EOSINOPHILS % (AUTO) 2.8 % (1.0-6.0); HEMATOCRIT 43.9 % (36-46); HEMOGLOBIN 14.4 g/dL (12.0-16.0); LYMPHOCYTES # (AUTO) 1.7 K/uL (1.0-4.8); LYMPHOCYTES % (AUTO) 32.5 % (22.0-44.0); MEAN CORPUSCULAR HEMOGLOBIN 29.1 pg (26.0-34.0); MEAN CORPUSCULAR HGB CONC 32.7 G/dL (31.0-37.0); MEAN CORPUSCULAR VOLUME 89 fL (80-100); MONOCYTES # (AUTO) 0.4 K/uL (0.1-1.0); MONOCYTES % (AUTO) 6.7 % (2.0-9.0); NEUTROPHILS # (AUTO) 3.1 K/uL (1.8-7.7); NEUTROPHILS % (AUTO) 57.2 % (40.0-70.0); PLATELET COUNT (AUTO) 319 K/uL (150-450); RED BLOOD CELL COUNT(AUTO) 4.93 MIL/uL (4.00-5.20); RED CELL DISTRIBUTION WIDTH 13.4 % (11.5-14.5)
[2021-06-23 11:11] LABS: HEMOGLOBIN A1C 5.7 % (3.8-5.6)
[2021-06-23 11:28] LABS: ALANINE AMINOTRANSFERASE 18 U/L (12-78); ALBUMIN 3.5 g/dL (3.4-5.0); ALKALINE PHOSPHATASE 57 U/L (46-116); ANION GAP 10 mmol/L (8-16); ASPARTATE AMINOTRANSFERASE 15 U/L (15-37); BILIRUBIN,TOTAL 0.4 mg/dL (0.1-1.0); CALCIUM, TOTAL 8.7 mg/dL (8.8-10.5); CARBON DIOXIDE 30 mmol/L (22-29); CHLORIDE 108 mmol/L (98-107); CHOL/HDL RATIO 3.7 (3.9-5.7); CHOLESTEROL 164 mg/dL (131-200); CREATININE 0.91 mg/dL (0.60-1.30); GLUCOSE,RANDOM 107 mg/dL (70-110); HDL CHOLESTEROL 44 mg/dL (40-60); LDL CHOL (CALC.) 97 mg/dL (0-130); POTASSIUM 4.1 mmol/L (3.5-5.1); SODIUM SERUM 148 mmol/L (136-145); THYROID STIMULATING HORMONE 2.54 uIU/mL (0.36-3.74); TOTAL PROTEIN, SERUM 7.3 g/dL (6.4-8.2); TRIGLYCERIDES 114 mg/dL (15-150); UREA NITROGEN, BLOOD 13 mg/dL (7-18)
[2021-06-23 11:29] LABS: GLOMERULAR FILTR. RATE CALC > 60 mL/min (>60)
[2021-06-23 11:30] LABS: APPEARANCE,URINE CLEAR (CLEAR); BILIRUBIN,URINE NEGATIVE (NEGATIVE); GLUCOSE, URINE (UA) NEGATIVE (NEGATIVE); KETONES,URINE NEGATIVE (NEGATIVE); LEUKOCYTE ESTERASE ,URINE TRACE (NEGATIVE); NITRATE,URINE NEGATIVE (NEGATIVE); OCCULT BLOOD,URINE NEGATIVE (NEGATIVE); PROTEIN,URINE NEGATIVE (NEGATIVE); UROBILINOGEN,URINE 0.2 mg/dL (<=1.0)
[2021-06-23 11:45] LABS: BACTERIA,URINE None Seen /HPF (None Seen); RBC,URINE None Seen /HPF (0-2); SQUAMOUS EPITHELIAL CELL,UR None Seen /LPF (None Seen); WBC,URINE None Seen /HPF (0-5)
[2021-06-23 12:03] LABS: FOLATE SERUM 5.7 ng/mL (5.4-)
[2021-06-23 12:13] LABS: ERYTHROCYTE SEDIMENTATION RATE 21 MM/HR (0-20)
== END | disposition home or self-care (01) ==
LOC: LABPV 08:10
PROVIDERS: ATTEND Hospitalist
DX: Z13.228 Encounter for screening for other metabolic disorders (principal); R82.90 Unspecified abnormal findings in urine; E55.9 Vitamin D deficiency, unspecified; R79.9 Abnormal finding of blood chemistry, unspecified; R70.0 Elevated erythrocyte sedimentation rate; R73.09 Other abnormal glucose; R94.6 Abnormal results of thyroid function studies
CPT/HCPCS: 80053; 80061; 81001; 82306; 82607; 82746; 83036; 84443; 85025; 85651

== ENCOUNTER → 2021-06-24 | Outpatient (CLI) | payer MEDICARE, OTHER ==
[2021-06-24 11:36] LABS: FOLATE SERUM 14.9 ng/mL (5.4-)
[2021-06-24 11:42] LABS: VITAMIN B12 LEVEL > 2000 pg/mL (211-911)
== END | disposition home or self-care (01) ==
LOC: LABMN 10:22
PROVIDERS: ATTEND Physician Assistant
DX: A69.20 Lyme disease, unspecified (principal); D51.8 Other vitamin B12 deficiency anemias; R94.6 Abnormal results of thyroid function studies
CPT/HCPCS: 82607; 82746; 86618

== ENCOUNTER → 2021-08-14 | Outpatient (CLI) | payer MEDICARE, OTHER ==
[~2021-08-14] VITALS: Ht 152.4 cm; Wt 67.0 kg
[~2021-08-14] MED LIST changes: +GABA-1181 PO
[2021-08-14 11:10] VITALS: BP 105/56
== END | disposition home or self-care (01) ==
LOC: SRCNTR 10:22
PROVIDERS: ATTEND Internal Medicine Cardiovascular Disease
DX: E11.9 Type 2 diabetes mellitus without complications (principal); E78.5 Hyperlipidemia, unspecified; K21.9 Gastro-esophageal reflux disease without esophagitis; G51.0 Bell's palsy; K58.9 Irritable bowel syndrome, unspecified; F41.9 Anxiety disorder, unspecified
CPT/HCPCS: G0463; Z7500

== ENCOUNTER → 2021-08-24 | Outpatient (CLI) | payer MEDICARE, OTHER ==
[~2021-08-24] VITALS: Ht 152.4 cm; Wt 69.0 kg
[~2021-08-24] MED LIST changes: +ALPR-707 PO; -ALPR0.5T8 PO
[2021-08-24 11:05] VITALS: BP 98/48
== END | disposition home or self-care (01) ==
LOC: SRCNTR 10:41
PROVIDERS: ATTEND Hospitalist
DX: I10 Essential (primary) hypertension (principal); E78.5 Hyperlipidemia, unspecified; K21.9 Gastro-esophageal reflux disease without esophagitis; E11.9 Type 2 diabetes mellitus without complications; K58.9 Irritable bowel syndrome, unspecified; F41.9 Anxiety disorder, unspecified; G51.0 Bell's palsy
CPT/HCPCS: G0463; Z7500

== ENCOUNTER → 2021-08-28 | Outpatient (CLI) | payer MEDICARE, OTHER ==
[2021-08-28 12:30] LABS: ALBUMIN 3.4 g/dL (3.4-5.0); BILIRUBIN,TOTAL 0.4 mg/dL (0.1-1.0); CALCIUM, TOTAL 8.9 mg/dL (8.8-10.5); CREATININE 0.97 mg/dL (0.60-1.30); POTASSIUM 4.5 mmol/L (3.5-5.1); TOTAL PROTEIN, SERUM 7.4 g/dL (6.4-8.2)
== END | disposition home or self-care (01) ==
LOC: LABPV 10:41
PROVIDERS: ATTEND Hospitalist
DX: Z01.89 Encounter for other specified special examinations (principal)
CPT/HCPCS: 80053

== ENCOUNTER → 2021-09-05 | Outpatient (CLI) | payer MEDICARE, OTHER ==
[~2021-09-05] MED LIST changes: +BARIUM SULFATE 0.1% SUSPENSION 450 ML BOTTLE ONE; +IOHEXOL 350 MG/ML 100 ML VIAL ONE; +SODIUM CHLORIDE 0.9% 100 ML ONE
== END | disposition home or self-care (01) ==
LOC: RADMN 08:56
PROVIDERS: ATTEND Hospitalist
DX: I70.0 Atherosclerosis of aorta (principal); K83.8 Other specified diseases of biliary tract; E27.8 Other specified disorders of adrenal gland; K86.89 Other specified diseases of pancreas; R07.9 Chest pain, unspecified; R10.84 Generalized abdominal pain
CPT/HCPCS: 71260; 72193; 74160; J7050; Q9967

== ENCOUNTER → 2021-09-21 | Outpatient (CLI) | payer MEDICARE, OTHER ==
[~2021-09-21] MED LIST changes: -BARIUM SULFATE 0.1% SUSPENSION 450 ML BOTTLE ONE; +CARB1DRO9 OD; +ERYT3.5O8 OD; -GLIP5 PO; +GLIP5TAB12 PO; -IOHEXOL 350 MG/ML 100 ML VIAL ONE; +ONDA-104 PO; +PROP1DRO OS; +SIME80TA82 PO; -SODIUM CHLORIDE 0.9% 100 ML ONE
[2021-09-21 12:04] VITALS: BP 113/52
== END | disposition home or self-care (01) ==
LOC: SRCNTR 11:58
PROVIDERS: ATTEND Hospitalist
DX: I10 Essential (primary) hypertension (principal); E78.5 Hyperlipidemia, unspecified; K21.9 Gastro-esophageal reflux disease without esophagitis; K58.9 Irritable bowel syndrome, unspecified; E11.9 Type 2 diabetes mellitus without complications; F41.9 Anxiety disorder, unspecified; G51.0 Bell's palsy
CPT/HCPCS: G0463; Z7500

== ENCOUNTER → 2021-09-25 | Outpatient (CLI) | payer MEDICARE, OTHER ==
[~2021-09-25] MED LIST changes: -CARB1DRO9 OD; -ERYT3.5O8 OD; +GLIP5 PO; -GLIP5TAB12 PO; -ONDA-104 PO; -PROP1DRO OS; -SIME80TA82 PO
[2021-09-25 13:36] LABS: ALANINE AMINOTRANSFERASE 25 U/L (12-78); ALBUMIN 3.4 g/dL (3.4-5.0); ALKALINE PHOSPHATASE 62 U/L (46-116); ANION GAP 6 mmol/L (8-16); ASPARTATE AMINOTRANSFERASE 21 U/L (15-37); BILIRUBIN,TOTAL 0.3 mg/dL (0.1-1.0); CALCIUM, TOTAL 8.8 mg/dL (8.8-10.5); CARBON DIOXIDE 31 mmol/L (22-29); CHLORIDE 105 mmol/L (98-107); GLUCOSE,RANDOM 106 mg/dL (70-110); POTASSIUM 5.1 mmol/L (3.5-5.1); SODIUM SERUM 142 mmol/L (136-145); TOTAL PROTEIN, SERUM 7.1 g/dL (6.4-8.2); UREA NITROGEN, BLOOD 16 mg/dL (7-18)
[2021-09-25 13:37] LABS: GLOMERULAR FILTR. RATE CALC > 60 mL/min (>60)
== END | disposition home or self-care (01) ==
LOC: LABMN 12:57
PROVIDERS: ATTEND Hospitalist
DX: Z01.89 Encounter for other specified special examinations (principal)
CPT/HCPCS: 80053

== ENCOUNTER → 2021-10-04 | Outpatient (CLI) | payer MEDICARE, MEDICAID ==
[~2021-10-04] MED LIST changes: +GADOTERATE MEGLUMINE 10 MMOL/20 ML VIAL IVP ONE; +ONDA-104 PO; +SIME80TA82 PO
== END | disposition home or self-care (01) ==
LOC: RADMN 10:30
PROVIDERS: ATTEND Hospitalist
DX: K86.9 Disease of pancreas, unspecified (principal); K83.8 Other specified diseases of biliary tract
CPT/HCPCS: 74183; A9575

== ENCOUNTER 2021-10-12 11:49 | Emergency (ER) | payer MEDICARE, OTHER ==
[~2021-10-12] VITALS: Ht 152.4 cm; Wt 68.0 kg
[~2021-10-12 11:49] MED LIST changes: -GADOTERATE MEGLUMINE 10 MMOL/20 ML VIAL IVP ONE; -ONDA-104 PO; -SIME80TA82 PO
[2021-10-12 13:01] LABS: BASOPHILS % (AUTO) 0.8 % (0.0-2.0); EOSINOPHILS % (AUTO) 1.2 % (1.0-6.0); HEMATOCRIT 42.7 % (36-46); HEMOGLOBIN 14.4 g/dL (12.0-16.0); LYMPHOCYTES # (AUTO) 1.7 K/uL (1.0-4.8); LYMPHOCYTES % (AUTO) 26.5 % (22.0-44.0); MEAN CORPUSCULAR HEMOGLOBIN 29.6 pg (26.0-34.0); MEAN CORPUSCULAR HGB CONC 33.6 G/dL (31.0-37.0); MEAN CORPUSCULAR VOLUME 88 fL (80-100); MONOCYTES # (AUTO) 0.4 K/uL (0.1-1.0); MONOCYTES % (AUTO) 6.3 % (2.0-9.0); NEUTROPHILS # (AUTO) 4.3 K/uL (1.8-7.7); NEUTROPHILS % (AUTO) 65.2 % (40.0-70.0); PLATELET COUNT (AUTO) 311 K/uL (150-450); RED BLOOD CELL COUNT(AUTO) 4.84 MIL/uL (4.00-5.20)
[2021-10-12 13:13] LABS: ANION GAP 4 mmol/L (8-16); CALCIUM, TOTAL 8.7 mg/dL (8.8-10.5); CARBON DIOXIDE 30 mmol/L (22-29); CHLORIDE 104 mmol/L (98-107); CREATININE 0.85 mg/dL (0.60-1.30); GLOMERULAR FILTR. RATE CALC > 60 mL/min (>60); GLUCOSE,RANDOM 99 mg/dL (70-110); POTASSIUM 4.4 mmol/L (3.5-5.1); SODIUM SERUM 138 mmol/L (136-145); UREA NITROGEN, BLOOD 14 mg/dL (7-18)
[2021-10-12 13:21] LABS: ALANINE AMINOTRANSFERASE 22 U/L (12-78); ALBUMIN 3.4 g/dL (3.4-5.0); ALKALINE PHOSPHATASE 58 U/L (46-116); ASPARTATE AMINOTRANSFERASE 21 U/L (15-37); BILIRUBIN,TOTAL 0.4 mg/dL (0.1-1.0); TOTAL PROTEIN, SERUM 7.2 g/dL (6.4-8.2)
[2021-10-12 13:35] VITALS: BP 131/66
[2021-10-12] MEDS ORDERED: ONDA-104 PO (14:00)
[2021-10-12] MEDS ORDERED: SIME80TA82 PO (14:00)
== END 2021-10-12 14:21 | disposition home or self-care (01) ==
LOC: EMS 11:56
DX: K52.9 Noninfective gastroenteritis and colitis, unspecified (principal); I10 Essential (primary) hypertension; E11.9 Type 2 diabetes mellitus without complications; E78.00 Pure hypercholesterolemia, unspecified; Z88.2 Allergy status to sulfonamides; Z88.5 Allergy status to narcotic agent; Z79.899 Other long term (current) drug therapy
CPT/HCPCS: 80053; 84484; 85025; 93005; 99284

== ENCOUNTER → 2021-10-18 | Outpatient (CLI) | payer MEDICARE, OTHER ==
[~2021-10-18] VITALS: Ht 152.4 cm; Wt 69.3 kg
[~2021-10-18] MED LIST changes: +CARB1DRO9 OD; +ERYT3.5O8 OD; -GLIP5 PO; +GLIP5TAB12 PO; +ONDA-104 PO; +PROP1DRO OS; +SIME80TA82 PO
[2021-10-18 11:11] VITALS: BP 94/45
== END | disposition home or self-care (01) ==
LOC: SRCNTR 10:38
PROVIDERS: ATTEND Internal Medicine Cardiovascular Disease
DX: E11.9 Type 2 diabetes mellitus without complications (principal); E78.5 Hyperlipidemia, unspecified; K21.9 Gastro-esophageal reflux disease without esophagitis; K58.9 Irritable bowel syndrome, unspecified; F41.9 Anxiety disorder, unspecified
CPT/HCPCS: G0463; Z7500

== ENCOUNTER → 2021-10-25 | Outpatient (CLI) | payer MEDICARE, MEDICAID ==
[~2021-10-25] VITALS: Ht 152.4 cm; Wt 69.0 kg
[~2021-10-25] MED LIST changes: +ACETAMINOPHEN 325 MG TABLET PO PRN; +DOCUSATE SODIUM 100 MG CAPSULE PO SCH; +HEPARIN SODIUM,PORCINE 5,000 UNITS/ML VIAL SQ SCH; +ONDANSETRON HCL 4 MG/2 ML VIAL IVP PRN; +PANTOPRAZOLE SODIUM 40 MG/VIAL IVP SCH
[2021-10-25 10:58] VITALS: BP 99/60
== END | disposition home or self-care (01) ==
LOC: SRCNTR 10:35
PROVIDERS: ATTEND Hospitalist
DX: R10.9 Unspecified abdominal pain (principal); I10 Essential (primary) hypertension; E11.9 Type 2 diabetes mellitus without complications; E78.5 Hyperlipidemia, unspecified; F41.9 Anxiety disorder, unspecified; G51.0 Bell's palsy; K83.8 Other specified diseases of biliary tract
CPT/HCPCS: G0463; Z7500

== ENCOUNTER → 2022-01-01 | Outpatient (CLI) | payer MEDICARE, OTHER ==
[~2022-01-01] VITALS: Ht 152.4 cm; Wt 68.5 kg
[~2022-01-01] MED LIST changes: -ACETAMINOPHEN 325 MG TABLET PO PRN; -DOCUSATE SODIUM 100 MG CAPSULE PO SCH; -HEPARIN SODIUM,PORCINE 5,000 UNITS/ML VIAL SQ SCH; -ONDANSETRON HCL 4 MG/2 ML VIAL IVP PRN; -PANTOPRAZOLE SODIUM 40 MG/VIAL IVP SCH
[2022-01-01 10:56] VITALS: BP 116/58
== END | disposition home or self-care (01) ==
LOC: SRCNTR 10:34
PROVIDERS: ATTEND Internal Medicine Cardiovascular Disease
DX: E11.9 Type 2 diabetes mellitus without complications (principal); Z09 Encounter for follow-up examination after completed treatment for conditions other than malignant neoplasm; E78.5 Hyperlipidemia, unspecified; K21.9 Gastro-esophageal reflux disease without esophagitis; K58.9 Irritable bowel syndrome, unspecified; F41.9 Anxiety disorder, unspecified
CPT/HCPCS: G0463; Z7500

== ENCOUNTER → 2022-01-24 | Outpatient (CLI) | payer MEDICARE, MEDICAID ==
[~2022-01-24] VITALS: Ht 167.6 cm; Wt 69.4 kg
[2022-01-24 14:27] VITALS: BP 130/56
== END | disposition home or self-care (01) ==
LOC: SRCNTR 09:59
PROVIDERS: ATTEND Hospitalist
DX: I10 Essential (primary) hypertension (principal); E78.5 Hyperlipidemia, unspecified; F41.1 Generalized anxiety disorder
CPT/HCPCS: G0463; Z7500

== ENCOUNTER → 2022-02-01 | Outpatient (CLI) | payer MEDICARE, MEDICAID ==
[2022-02-01 08:33] LABS: BASOPHILS % (AUTO) 0.8 % (0.0-2.0); EOSINOPHILS % (AUTO) 5.7 % (1.0-6.0); HEMATOCRIT 42.9 % (36-46); HEMOGLOBIN 13.9 g/dL (12.0-16.0); LYMPHOCYTES % (AUTO) 34.6 % (22.0-44.0); MEAN CORPUSCULAR HEMOGLOBIN 29.3 pg (26.0-34.0); MEAN CORPUSCULAR HGB CONC 32.5 G/dL (31.0-37.0); MEAN CORPUSCULAR VOLUME 90 fL (80-100); MONOCYTES # (AUTO) 0.5 K/uL (0.1-1.0); MONOCYTES % (AUTO) 8.6 % (2.0-9.0); NEUTROPHILS # (AUTO) 2.9 K/uL (1.8-7.7); NEUTROPHILS % (AUTO) 50.3 % (40.0-70.0); PLATELET COUNT (AUTO) 299 K/uL (150-450); RED BLOOD CELL COUNT(AUTO) 4.76 MIL/uL (4.00-5.20); RED CELL DISTRIBUTION WIDTH 14.3 % (11.5-14.5)
[2022-02-01 08:43] LABS: HEMOGLOBIN A1C 6.1 % (3.8-5.6)
[2022-02-01 08:49] LABS: ALBUMIN 3.4 g/dL (3.4-5.0); BILIRUBIN,TOTAL 0.5 mg/dL (0.1-1.0); CALCIUM, TOTAL 8.7 mg/dL (8.8-10.5); CHOL/HDL RATIO 3.2 (3.9-5.7); CREATININE 0.93 mg/dL (0.60-1.30)
== END | disposition home or self-care (01) ==
LOC: LABMN 07:53
PROVIDERS: ATTEND Hospitalist
DX: E11.9 Type 2 diabetes mellitus without complications (principal)
CPT/HCPCS: 80053; 80061; 83036; 85025

== ENCOUNTER → 2022-03-05 | Outpatient (CLI) | payer MEDICARE, OTHER ==
[2022-03-05 10:58] VITALS: BP 112/57
== END | disposition home or self-care (01) ==
LOC: SRCNTR 10:34
PROVIDERS: ATTEND Internal Medicine Cardiovascular Disease
DX: E11.9 Type 2 diabetes mellitus without complications (principal); Z09 Encounter for follow-up examination after completed treatment for conditions other than malignant neoplasm; E78.5 Hyperlipidemia, unspecified; K21.9 Gastro-esophageal reflux disease without esophagitis; K58.8 Other irritable bowel syndrome; F41.9 Anxiety disorder, unspecified
CPT/HCPCS: G0463

== ENCOUNTER → 2022-03-13 | Outpatient (CLI) | payer MEDICARE, OTHER ==
[~2022-03-13] VITALS: Ht 154.9 cm; Wt 70.0 kg
[~2022-03-13] MED LIST changes: +INFLUENZA VIRUS VACCINE QVS 2022-23 (6MO+)/PF 60 MCG/0.5 ML SYRINGE IM. ONE
[2022-03-13 13:27] VITALS: BP 101/56
== END | disposition home or self-care (01) ==
LOC: SRCNTR 10:31
PROVIDERS: ATTEND Hospitalist
DX: Z23 Encounter for immunization (principal); E11.9 Type 2 diabetes mellitus without complications; E78.5 Hyperlipidemia, unspecified; K21.9 Gastro-esophageal reflux disease without esophagitis; F41.9 Anxiety disorder, unspecified
CPT/HCPCS: 90686; 90471; G0463

== ENCOUNTER → 2022-04-25 | Outpatient (CLI) | payer MEDICARE, MEDICAID ==
[~2022-04-25] VITALS: Ht 154.9 cm; Wt 73.0 kg
[~2022-04-25] MED LIST changes: -INFLUENZA VIRUS VACCINE QVS 2022-23 (6MO+)/PF 60 MCG/0.5 ML SYRINGE IM. ONE
[2022-04-25 10:24] VITALS: BP 116/57
[2022-04-25 11:46] LABS: GLUCOMETER DEV NAME(LOC) SHC.; GLUCOSE,POINT OF CARE 116 MG/DL (70-110)
== END | disposition home or self-care (01) ==
LOC: SRCNTR 10:06
PROVIDERS: ATTEND Hospitalist
DX: R05.9 Cough, unspecified (principal); E11.65 Type 2 diabetes mellitus with hyperglycemia; I10 Essential (primary) hypertension; E78.5 Hyperlipidemia, unspecified; K21.9 Gastro-esophageal reflux disease without esophagitis; K58.9 Irritable bowel syndrome, unspecified; F41.9 Anxiety disorder, unspecified; G51.0 Bell's palsy
CPT/HCPCS: 82962; G0463

== ENCOUNTER → 2022-05-14 | Outpatient (CLI) | payer MEDICARE, OTHER ==
[~2022-05-14] VITALS: Ht 154.9 cm; Wt 71.0 kg
[2022-05-14 11:04] VITALS: BP 125/68
== END | disposition home or self-care (01) ==
LOC: SRCNTR 10:37
PROVIDERS: ATTEND Internal Medicine Cardiovascular Disease
DX: Z09 Encounter for follow-up examination after completed treatment for conditions other than malignant neoplasm (principal); I10 Essential (primary) hypertension; E78.5 Hyperlipidemia, unspecified; K21.9 Gastro-esophageal reflux disease without esophagitis; K58.9 Irritable bowel syndrome, unspecified; E11.9 Type 2 diabetes mellitus without complications; F41.9 Anxiety disorder, unspecified
CPT/HCPCS: G0463; Z7500

== ENCOUNTER → 2022-06-13 | Outpatient (CLI) | payer MEDICARE, OTHER ==
[~2022-06-13] VITALS: Ht 162.6 cm; Wt 73.0 kg
[2022-06-13 10:48] VITALS: BP 130/64
== END | disposition home or self-care (01) ==
LOC: SRCNTR 10:30
PROVIDERS: ATTEND Hospitalist
DX: I10 Essential (primary) hypertension (principal); E11.9 Type 2 diabetes mellitus without complications; E78.5 Hyperlipidemia, unspecified; K21.9 Gastro-esophageal reflux disease without esophagitis; K58.9 Irritable bowel syndrome, unspecified; F41.9 Anxiety disorder, unspecified; G51.0 Bell's palsy; R42 Dizziness and giddiness
CPT/HCPCS: G0463; Z7500

== ENCOUNTER → 2022-07-16 | Outpatient (CLI) | payer MEDICARE, OTHER ==
[~2022-07-16] VITALS: Ht 160 cm; Wt 73.0 kg
[2022-07-16 10:53] VITALS: BP 101/57
== END | disposition home or self-care (01) ==
LOC: SRCNTR 10:44
PROVIDERS: ATTEND Internal Medicine Cardiovascular Disease
DX: Z09 Encounter for follow-up examination after completed treatment for conditions other than malignant neoplasm (principal); I10 Essential (primary) hypertension; E11.9 Type 2 diabetes mellitus without complications; E78.5 Hyperlipidemia, unspecified; K21.9 Gastro-esophageal reflux disease without esophagitis; K58.9 Irritable bowel syndrome, unspecified; F41.9 Anxiety disorder, unspecified; R42 Dizziness and giddiness
CPT/HCPCS: G0463; Z7500

== ENCOUNTER → 2022-09-21 | Outpatient (CLI) | payer MEDICARE, OTHER ==
[~2022-09-21] MED LIST changes: +CARB1DRO24 OD; -CARB1DRO9 OD
== END | disposition home or self-care (01) ==
LOC: SRCNTR 12:11
PROVIDERS: ATTEND Hospitalist
DX: I10 Essential (primary) hypertension (principal); E78.5 Hyperlipidemia, unspecified; K21.9 Gastro-esophageal reflux disease without esophagitis; E11.9 Type 2 diabetes mellitus without complications; F41.9 Anxiety disorder, unspecified; G51.0 Bell's palsy; K58.9 Irritable bowel syndrome, unspecified; G89.29 Other chronic pain
CPT/HCPCS: G0463; Z7500

== ENCOUNTER → 2022-10-29 | Outpatient (CLI) | payer MEDICARE, OTHER ==
[~2022-10-29] VITALS: Ht 152.4 cm; Wt 73.0 kg
[2022-10-29 11:44] VITALS: BP 120/80
== END | disposition home or self-care (01) ==
LOC: SRCNTR 11:24
PROVIDERS: ATTEND Internal Medicine Cardiovascular Disease
DX: Z09 Encounter for follow-up examination after completed treatment for conditions other than malignant neoplasm (principal); I10 Essential (primary) hypertension; E11.9 Type 2 diabetes mellitus without complications; E78.5 Hyperlipidemia, unspecified; K58.9 Irritable bowel syndrome, unspecified; R42 Dizziness and giddiness
CPT/HCPCS: G0463

== ENCOUNTER → 2022-12-31 | Outpatient (CLI) | payer MEDICARE, OTHER ==
[~2022-12-31] VITALS: Ht 154.9 cm; Wt 75.0 kg
[2022-12-31 10:55] VITALS: BP 118/66; PULSE 78; RESP 20; TEMP 98.4; O2SAT 96
== END | disposition home or self-care (01) ==
LOC: SRCNTR 10:38
PROVIDERS: ATTEND Internal Medicine Cardiovascular Disease
DX: Z09 Encounter for follow-up examination after completed treatment for conditions other than malignant neoplasm (principal); I10 Essential (primary) hypertension; E11.9 Type 2 diabetes mellitus without complications; E78.5 Hyperlipidemia, unspecified; K58.9 Irritable bowel syndrome, unspecified; R42 Dizziness and giddiness
CPT/HCPCS: G0463

== ENCOUNTER → 2023-02-20 | Outpatient (CLI) | payer MEDICARE, OTHER ==
[~2023-02-20] VITALS: Ht 160 cm; Wt 74.2 kg
[~2023-02-20] MED LIST changes: +BENZ-227 PO; -GLIP5TAB12 PO; +GLIP5TAB16 PO; +INFLUENZA VIRUS VACCINE QVS 2023-24 (6MO+)/PF 60 MCG/0.5 ML SYRINGE IM. ONE
[2023-02-20 11:51] VITALS: BP 105/57; PULSE 73; RESP 17; TEMP 97.9; O2SAT 96
== END | disposition home or self-care (01) ==
LOC: SRCNTR 11:21
PROVIDERS: ATTEND Hospitalist
DX: E11.65 Type 2 diabetes mellitus with hyperglycemia (principal); Z23 Encounter for immunization; I10 Essential (primary) hypertension; E78.5 Hyperlipidemia, unspecified; G89.4 Chronic pain syndrome; K58.9 Irritable bowel syndrome, unspecified; K21.9 Gastro-esophageal reflux disease without esophagitis; F41.9 Anxiety disorder, unspecified; Z79.899 Other long term (current) drug therapy
CPT/HCPCS: 90686; 90471; G0463

== ENCOUNTER → 2023-02-21 | Outpatient (CLI) | payer MEDICARE, OTHER ==
[~2023-02-21] MED LIST changes: -GABA-1181 PO; +GLIP5TAB12 PO; -GLIP5TAB16 PO; -INFLUENZA VIRUS VACCINE QVS 2023-24 (6MO+)/PF 60 MCG/0.5 ML SYRINGE IM. ONE; -ONDA-104 PO; -SIME80TA82 PO
[2023-02-21 10:01] LABS: BASOPHILS % (AUTO) 1.1 % (0.0-2.0); EOSINOPHILS % (AUTO) 5.3 % (1.0-6.0); HEMATOCRIT 44.1 % (36-46); HEMOGLOBIN 14.1 g/dL (12.0-16.0); LYMPHOCYTES # (AUTO) 1.9 K/uL (1.0-4.8); LYMPHOCYTES % (AUTO) 31.7 % (22.0-44.0); MEAN CORPUSCULAR HEMOGLOBIN 29.1 pg (26.0-34.0); MEAN CORPUSCULAR HGB CONC 32.1 G/dL (31.0-37.0); MEAN CORPUSCULAR VOLUME 91 fL (80-100); MONOCYTES # (AUTO) 0.5 K/uL (0.1-1.0); MONOCYTES % (AUTO) 8.7 % (2.0-9.0); NEUTROPHILS # (AUTO) 3.1 K/uL (1.8-7.7); NEUTROPHILS % (AUTO) 53.2 % (40.0-70.0); PLATELET COUNT (AUTO) 308 K/uL (150-450); RED BLOOD CELL COUNT(AUTO) 4.86 MIL/uL (4.00-5.20); RED CELL DISTRIBUTION WIDTH 14.4 % (11.5-14.5); WHITE BLOOD COUNT (AUTO) 5.9 K/uL (4.5-11.0)
[2023-02-21 10:03] LABS: HEMOGLOBIN A1C 6.3 % (3.8-5.6)
[2023-02-21 10:13] LABS: ALANINE AMINOTRANSFERASE 26 U/L (12-78); ALBUMIN 3.2 g/dL (3.4-5.0); ALKALINE PHOSPHATASE 65 U/L (46-116); ANION GAP 6 mmol/L (8-16); ASPARTATE AMINOTRANSFERASE 24 U/L (15-37); BILIRUBIN,TOTAL 0.4 mg/dL (0.1-1.0); CALCIUM, TOTAL 8.3 mg/dL (8.8-10.5); CARBON DIOXIDE 31 mmol/L (22-29); CHLORIDE 107 mmol/L (98-107); CHOL/HDL RATIO 3.8 (3.9-5.7); CHOLESTEROL 173 mg/dL (131-200); GLOMERULAR FILTR. RATE CALC > 60 mL/min (>60); GLUCOSE,RANDOM 113 mg/dL (70-110); HDL CHOLESTEROL 45 mg/dL (40-60); LDL CHOL (CALC.) 95 mg/dL (0-130); POTASSIUM 4.5 mmol/L (3.5-5.1); SODIUM SERUM 144 mmol/L (136-145); TRIGLYCERIDES 167 mg/dL (15-150); UREA NITROGEN, BLOOD 13 mg/dL (7-18)
== END | disposition home or self-care (01) ==
LOC: LABMN 08:58
PROVIDERS: ATTEND Hospitalist
DX: Z01.89 Encounter for other specified special examinations (principal); Z79.899 Other long term (current) drug therapy
CPT/HCPCS: 80053; 80061; 83036; 85025; 86038; 86431

== ENCOUNTER → 2023-02-27 | Outpatient (CLI) | payer MEDICARE, OTHER ==
[~2023-02-27] MED LIST changes: +GABA-1181 PO; -GLIP5TAB12 PO; +GLIP5TAB16 PO; +ONDA-104 PO; +SIME80TA82 PO
== END | disposition home or self-care (01) ==
LOC: RADMN 09:21
PROVIDERS: ATTEND Hospitalist
DX: J18.9 Pneumonia, unspecified organism (principal)
CPT/HCPCS: 71046

== ENCOUNTER → 2023-03-04 | Outpatient (CLI) | payer MEDICARE, OTHER ==
[~2023-03-04] VITALS: Ht 152.4 cm; Wt 75.0 kg
[~2023-03-04] MED LIST changes: -GABA-1181 PO; -ONDA-104 PO; -SIME80TA82 PO
[2023-03-04 11:23] VITALS: BP 117/55; PULSE 80; RESP 20; TEMP 98.8; O2SAT 97
== END | disposition home or self-care (01) ==
LOC: SRCNTR 11:11
PROVIDERS: ATTEND Internal Medicine Cardiovascular Disease
DX: Z09 Encounter for follow-up examination after completed treatment for conditions other than malignant neoplasm (principal); I10 Essential (primary) hypertension; E11.9 Type 2 diabetes mellitus without complications; E78.5 Hyperlipidemia, unspecified; R42 Dizziness and giddiness; K58.9 Irritable bowel syndrome, unspecified
CPT/HCPCS: G0463; Z7500

== ENCOUNTER → 2023-04-29 | Outpatient (CLI) | payer MEDICARE, OTHER ==
[~2023-04-29] VITALS: Ht 152.4 cm; Wt 75.0 kg
[2023-04-29 10:41] VITALS: BP 116/69; PULSE 80; RESP 20; TEMP 98.3; O2SAT 97
== END | disposition home or self-care (01) ==
LOC: SRCNTR 10:28
PROVIDERS: ATTEND Internal Medicine Cardiovascular Disease
DX: Z09 Encounter for follow-up examination after completed treatment for conditions other than malignant neoplasm (principal); E11.9 Type 2 diabetes mellitus without complications; I10 Essential (primary) hypertension; E78.5 Hyperlipidemia, unspecified; K58.9 Irritable bowel syndrome, unspecified
CPT/HCPCS: G0463

== ENCOUNTER → 2023-05-15 | Outpatient (CLI) | payer MEDICARE, OTHER ==
[~2023-05-15] VITALS: Ht 152.4 cm; Wt 77.0 kg
[~2023-05-15] MED LIST changes: +ACET-3385 PO; +GLIP-102 PO; +PREG75 PO; +PREG75CA76 PO; +SIMV-43 PO
[2023-05-15 12:33] VITALS: BP 127/69; PULSE 74; RESP 19; TEMP 98.1; O2SAT 94
== END | disposition home or self-care (01) ==
LOC: SRCNTR 12:00
PROVIDERS: ATTEND Hospitalist
DX: I10 Essential (primary) hypertension (principal); E78.5 Hyperlipidemia, unspecified; K21.9 Gastro-esophageal reflux disease without esophagitis; K58.9 Irritable bowel syndrome, unspecified; F41.9 Anxiety disorder, unspecified; E11.9 Type 2 diabetes mellitus without complications; G51.0 Bell's palsy; Z79.899 Other long term (current) drug therapy
CPT/HCPCS: G0463

== ENCOUNTER 2023-06-19 11:51 | Emergency (ER) | payer MEDICARE, OTHER ==
[~2023-06-19] VITALS: Ht 154.9 cm; Wt 70.5 kg
[~2023-06-19 11:51] MED LIST changes: -ACET-3385 PO; -GLIP-102 PO; -PREG75CA76 PO; -SIMV-43 PO
[2023-06-19] MEDS ORDERED: SIMV-43 PO (12:00)
[2023-06-19] MEDS ORDERED: GLIP-102 PO (12:00)
[2023-06-19] MEDS ORDERED: PREG75CA76 PO (12:00)
[2023-06-19 12:08] VITALS: TEMP 98.1
[2023-06-19 13:01] LABS: APPEARANCE,URINE CLEAR (CLEAR); BILIRUBIN,URINE NEGATIVE (NEGATIVE); COLOR,URINE LIGHT YELLOW (YELLOW); GLUCOSE, URINE (UA) NEGATIVE (NEGATIVE); KETONES,URINE NEGATIVE (NEGATIVE); LEUKOCYTE ESTERASE ,URINE NEGATIVE (NEGATIVE); NITRATE,URINE NEGATIVE (NEGATIVE); OCCULT BLOOD,URINE NEGATIVE (NEGATIVE); PROTEIN,URINE NEGATIVE (NEGATIVE); SPECIFIC GRAVITIY, URINE 1.011 (1.003-1.030); UROBILINOGEN,URINE <=1.0 mg/dL (<=1.0)
[2023-06-19 13:08] LABS: BASOPHILS % (AUTO) 1.2 % (0.0-2.0); EOSINOPHILS % (AUTO) 3.4 % (1.0-6.0); HEMATOCRIT 41.8 % (36-46); HEMOGLOBIN 13.7 g/dL (12.0-16.0); LYMPHOCYTES # (AUTO) 1.6 K/uL (1.0-4.8); LYMPHOCYTES % (AUTO) 27.1 % (22.0-44.0); MEAN CORPUSCULAR HEMOGLOBIN 29.9 pg (26.0-34.0); MEAN CORPUSCULAR HGB CONC 32.8 G/dL (31.0-37.0); MEAN CORPUSCULAR VOLUME 91 fL (80-100); MONOCYTES # (AUTO) 0.6 K/uL (0.1-1.0); MONOCYTES % (AUTO) 10.7 % (2.0-9.0); NEUTROPHILS # (AUTO) 3.4 K/uL (1.8-7.7); NEUTROPHILS % (AUTO) 57.6 % (40.0-70.0); PLATELET COUNT (AUTO) 328 K/uL (150-450); RED CELL DISTRIBUTION WIDTH 14.1 % (11.5-14.5); WHITE BLOOD COUNT (AUTO) 5.8 K/uL (4.5-11.0)
[2023-06-19 13:24] LABS: ALANINE AMINOTRANSFERASE 20 U/L (12-78); ALBUMIN 3.3 g/dL (3.4-5.0); ALKALINE PHOSPHATASE 58 U/L (46-116); ANION GAP 6 mmol/L (8-16); ASPARTATE AMINOTRANSFERASE 19 U/L (15-37); BILIRUBIN,TOTAL 0.2 mg/dL (0.1-1.0); CALCIUM, TOTAL 9.1 mg/dL (8.8-10.5); CARBON DIOXIDE 30 mmol/L (22-29); CHLORIDE 104 mmol/L (98-107); CREATININE 0.82 mg/dL (0.60-1.30); GLOMERULAR FILTR. RATE CALC > 60 mL/min (>60); GLUCOSE,RANDOM 166 mg/dL (70-110); POTASSIUM 3.8 mmol/L (3.5-5.1); SODIUM SERUM 139 mmol/L (136-145); TOTAL PROTEIN, SERUM 6.9 g/dL (6.4-8.2); TROPONIN I-HIGH SENSITIVITY 13 ng/L (<51); UREA NITROGEN, BLOOD 14 mg/dL (7-18)
[2023-06-19 13:25] LABS: LIPASE 56 U/L (16-77)
[2023-06-19] MEDS ORDERED: IOHEXOL 350 MG/ML 100 ML VIAL ONE (15:38)
[2023-06-19] MEDS ORDERED: SODIUM CHLORIDE 0.9% 100 ML ONE (15:38)
[2023-06-19] MEDS: ONDANSETRON HCL 4 MG/2 ML VIAL IVP ONE (15:57)
[2023-06-19] MEDS: ACETAMINOPHEN 500 MG TABLET PO ONE (15:57)
[2023-06-19] MEDS ORDERED: ACET-3385 PO (17:41)
[2023-06-19 18:00] VITALS: BP 145/83; PULSE 80; RESP 14
[2023-07-24] MEDS ORDERED: PREG75CA76 PO (14:43)
[2023-07-24] MEDS ORDERED: SIMV-43 PO (14:46)
[2023-07-24] MEDS ORDERED: EZET10TA57 PO (14:46)
[2023-07-24] MEDS ORDERED: GLIP-102 PO (14:46)
== END 2023-06-19 18:30 | disposition home or self-care (01) ==
LOC: EMS 11:51
DX: R10.84 Generalized abdominal pain (principal); E11.9 Type 2 diabetes mellitus without complications; E78.00 Pure hypercholesterolemia, unspecified; I10 Essential (primary) hypertension; Z88.2 Allergy status to sulfonamides; Z88.5 Allergy status to narcotic agent
CPT/HCPCS: 99285; 74177; 96374; 80053; 81003; 82271; 83690; 84484; 85025; 36415; 93005; J2405; Q9967; J7050

== ENCOUNTER → 2023-07-01 | Outpatient (CLI) | payer MEDICARE, OTHER ==
[~2023-07-01] VITALS: Ht 152.4 cm; Wt 77.0 kg
[~2023-07-01] MED LIST changes: +ACET-3385 PO; -ALEN70TA65 PO; -ALPR-707 PO; -BENZ-227 PO; -CARB1DRO24 OD; -ERYT3.5O8 OD; -EZET10TA57 PO; +GLIP-102 PO; -GLIP5TAB16 PO; -OMEP20 PO; -PREG75 PO; +PREG75CA76 PO; -PROP1DRO OS; -SIMV-260 PO; +SIMV-43 PO
[2023-07-01 10:54] VITALS: BP 115/60; PULSE 80; RESP 20; TEMP 98.1; O2SAT 97
== END | disposition home or self-care (01) ==
LOC: SRCNTR 10:53
PROVIDERS: ATTEND Internal Medicine Cardiovascular Disease
DX: I10 Essential (primary) hypertension (principal); E11.9 Type 2 diabetes mellitus without complications; E78.5 Hyperlipidemia, unspecified; K21.9 Gastro-esophageal reflux disease without esophagitis; F41.9 Anxiety disorder, unspecified; G51.0 Bell's palsy; K58.9 Irritable bowel syndrome, unspecified; Z79.899 Other long term (current) drug therapy; Z88.2 Allergy status to sulfonamides; Z88.8 Allergy status to other drugs, medicaments and biological substances
CPT/HCPCS: G0463; Z7500

== ENCOUNTER → 2023-07-24 | Outpatient (CLI) | payer MEDICARE, OTHER ==
[~2023-07-24] VITALS: Ht 167.6 cm; Wt 76.0 kg
[~2023-07-24] MED LIST changes: +EZET10TA57 PO
[2023-07-24 13:59] VITALS: BP 117/57; PULSE 69; RESP 20; TEMP 97.5; O2SAT 95
== END | disposition home or self-care (01) ==
LOC: SRCNTR 13:25
PROVIDERS: ATTEND Hospitalist
DX: I10 Essential (primary) hypertension (principal); E11.9 Type 2 diabetes mellitus without complications; E78.5 Hyperlipidemia, unspecified; Z79.899 Other long term (current) drug therapy
CPT/HCPCS: G0463

== ENCOUNTER → 2023-08-26 | Outpatient (CLI) | payer MEDICARE, OTHER ==
[~2023-08-26] VITALS: Ht 154.9 cm; Wt 78.0 kg
[2023-08-26 10:54] VITALS: BP 116/69; PULSE 76; RESP 20; TEMP 98.3; O2SAT 98
== END | disposition home or self-care (01) ==
LOC: SRCNTR 10:31
PROVIDERS: ATTEND Internal Medicine Cardiovascular Disease
DX: R94.31 Abnormal electrocardiogram [ECG] [EKG] (principal); I10 Essential (primary) hypertension; E11.9 Type 2 diabetes mellitus without complications; E78.5 Hyperlipidemia, unspecified; K21.9 Gastro-esophageal reflux disease without esophagitis; Z88.2 Allergy status to sulfonamides; Z88.8 Allergy status to other drugs, medicaments and biological substances; Z79.899 Other long term (current) drug therapy
CPT/HCPCS: 93005; G0463

== ENCOUNTER → 2023-09-17 | Outpatient (CLI) | payer MEDICARE, OTHER ==
[~2023-09-17] VITALS: Ht 152.4 cm; Wt 77.0 kg
[2023-09-17 15:10] VITALS: BP 118/53; PULSE 78; RESP 20; TEMP 98.3; O2SAT 97
== END | disposition home or self-care (01) ==
LOC: SRCNTR 14:36
PROVIDERS: ATTEND Internal Medicine Cardiovascular Disease
DX: I10 Essential (primary) hypertension (principal); E11.9 Type 2 diabetes mellitus without complications; E78.5 Hyperlipidemia, unspecified; K21.9 Gastro-esophageal reflux disease without esophagitis; K58.9 Irritable bowel syndrome, unspecified
CPT/HCPCS: G0463; Z7500

== ENCOUNTER → 2023-10-03 | Outpatient (CLI) | payer MEDICARE, OTHER ==
[~2023-10-03] VITALS: Ht 152.4 cm; Wt 77.0 kg
[~2023-10-03] MED LIST changes: +ALPR-709 PO; +OMEP-99 PO
[2023-10-03 13:57] VITALS: BP 106/64; PULSE 77; RESP 20; TEMP 98.3; O2SAT 96
== END | disposition home or self-care (01) ==
LOC: SRCNTR 13:27
PROVIDERS: ATTEND Hospitalist
DX: E11.9 Type 2 diabetes mellitus without complications (principal); E78.5 Hyperlipidemia, unspecified; I10 Essential (primary) hypertension; K21.9 Gastro-esophageal reflux disease without esophagitis; F41.9 Anxiety disorder, unspecified; G51.0 Bell's palsy; Z79.899 Other long term (current) drug therapy; K58.9 Irritable bowel syndrome, unspecified
CPT/HCPCS: G0463

== ENCOUNTER → 2023-10-28 | Outpatient (CLI) | payer MEDICARE, OTHER ==
[~2023-10-28] VITALS: Ht 152.4 cm; Wt 74.0 kg
[~2023-10-28] MED LIST changes: -ACET-3385 PO
[2023-10-28 10:47] VITALS: BP 125/60; PULSE 72; RESP 20; TEMP 97.8; O2SAT 97
== END | disposition home or self-care (01) ==
LOC: SRCNTR 10:32
PROVIDERS: ATTEND Internal Medicine Cardiovascular Disease
DX: I10 Essential (primary) hypertension (principal); K58.9 Irritable bowel syndrome, unspecified; E11.9 Type 2 diabetes mellitus without complications; E78.5 Hyperlipidemia, unspecified; K21.9 Gastro-esophageal reflux disease without esophagitis; Z88.2 Allergy status to sulfonamides; Z88.5 Allergy status to narcotic agent; Z79.899 Other long term (current) drug therapy
CPT/HCPCS: G0463; Z7500

== ENCOUNTER → 2024-01-23 | Outpatient (CLI) | payer MEDICARE, OTHER ==
[~2024-01-23] VITALS: Ht 152.4 cm; Wt 76.0 kg
[~2024-01-23] MED LIST changes: +IBUP-1493 PO; +IBUPROFEN 800 MG TABLET PO SCH
[2024-01-23 13:16] VITALS: BP 120/64; PULSE 78; RESP 18; TEMP 98.4; O2SAT 97
== END | disposition home or self-care (01) ==
LOC: SRCNTR 12:54
PROVIDERS: ATTEND Hospitalist
DX: M25.572 Pain in left ankle and joints of left foot (principal); E78.5 Hyperlipidemia, unspecified; I10 Essential (primary) hypertension; K21.9 Gastro-esophageal reflux disease without esophagitis; M19.90 Unspecified osteoarthritis, unspecified site; G51.0 Bell's palsy; K58.9 Irritable bowel syndrome, unspecified; E11.9 Type 2 diabetes mellitus without complications; Z88.2 Allergy status to sulfonamides; Z88.5 Allergy status to narcotic agent; Z79.899 Other long term (current) drug therapy
CPT/HCPCS: G0463; Z7500

== ENCOUNTER → 2024-01-29 | Outpatient (CLI) | payer MEDICARE, OTHER ==
[~2024-01-29] MED LIST changes: -IBUPROFEN 800 MG TABLET PO SCH
== END | disposition home or self-care (01) ==
LOC: RADPV 12:59
PROVIDERS: ATTEND Hospitalist
DX: I70.219 Atherosclerosis of native arteries of extremities with intermittent claudication, unspecified extremity (principal)
CPT/HCPCS: 93925; 93970